=== PATIENT | male | born 1995 | race Caucasian/White ===

== ENCOUNTER 2018-02-05 20:55 | Emergency (ER) | payer SELFPAY ==
[~2018-02-05] VITALS: Ht 180.3 cm; Wt 86.2 kg
[~2018-02-05 20:55] MED LIST: ALBU8.5H2 IH; BPR75T PO; BUPR300T; CLIN300C11 PO; HYDR1TAB PO; LIDO15SO2 MM; METO-354 PO; NAPR-915 PO; NYQUIL; OMEP20CA12 PO; ONDA4TAB8 PO; POLY17PO23 GT; POLY17PO6 PO; RISP2TAB18; RISPERDOL
[2018-02-05] MEDS ORDERED: ONDANSETRON 4 MG (ZOFRAN) ORAL DISSOLVE TAB PO ONE (21:15)
--- NOTE | 2018-02-05 21:21 | ED GI ---
General Chief Complaint: Cough/Cold/Flu Symptoms Stated Complaint: VOMITING,SOB Source of Information: Patient Exam Limitations: No Limitations History of Present Illness Date Seen by Provider: Feb 05, 2018 Time Seen by Provider: 21:10 Initial Comments The patient presents to the ER by private conveyance with a chief complaint that for now 24 hours she has had nausea vomiting and some soft stools. He has had cough and cold-like symptoms for the past several days as well as several members of his family over the past couple weeks to have had colds without diarrhea or vomiting. He also has some tooth pain that is unrelated to his current symptoms. He has no other significant medical history no asthma and smokes cigarettes. He denies any abdominal surgeries or abdominal pain. He has been using Motrin for his dental pain as well as TheraFlu which gave him a little relief last night but not for very long. Allergies and Home Medications Allergies Coded Allergies: Penicillins (Unverified Allergy, Mild, 02/25/09) Home Medications Clindamycin HCl 300 Mg Capsule, 300 MG PO QID Prescribed by: ROBERT SANCHEZ on 08/28/172228 Lidocaine HCl 15 Ml Solution, 1-2 ML MM Q 1-2 HOURS Prescribed by: ROBERT SANCHEZ on 08/28/172228 Naproxen 500 Mg Tablet, 500 MG PO BID Prescribed by: ROBERT SANCHEZ on 08/28/172228 Patient Home Medication List Home Medication List Reviewed: Yes Review of Systems Constitutional: No chills, No diaphoresis, No fever, No malaise, No weakness EENTM: No Blurred Vision, No Double Vision Respiratory: Cough; Denies Shortness of Air, Denies Wheezing Cardiovascular: Denies Chest Pain, Denies Palpitations, Denies Syncope Gastrointestinal: Denies Constipated; Diarrhea, Nausea, Poor Fluid Intake, Vomiting Genitourinary: Denies Burning, Denies Discharge Musculoskeletal: No back pain, No joint pain Skin: No pruritus, No rash Psychiatric/Neurological: Denies Headache, Denies Numbness, Denies Paresthesia Past Ljxsyew-Pmlaja-Dhlrxb Hx Patient Social History Recreational Drug Use: No Smoking Status: Current Everyday Smoker Type Used: Cigarettes 2nd Hand Smoke Exposure: Yes Recent Hopitalizations: No Immunizations Up To Date Tetanus Booster (TDap): Unknown PED Vaccines UTD: Yes Date of Influenza Vaccine: Aug 12, 2012 Seasonal Allergies Seasonal Allergies: No Past Medical History Surgeries: Yes (BMT'S) Ear Surgery Respiratory: Yes Asthma Currently Using CPAP: No Currently Using BIPAP: No Cardiac: No Neurological: No Reproductive Disorders: No Sexually Transmitted Disease: No HIV/AIDS: No Gastrointestinal: Yes Chronic Constipation Musculoskeletal: No Endocrine: No HEENT: Yes (CHRONIC DENTAL ISSUES--"METH MOUTH" ) Cancer: No Psychosocial: Yes (DRUG AND ALCOHOL ABUSE) Anxiety, Bipolar, Depression Integumentary: No Blood Disorders: No Adverse Reaction/Blood Tranf: No Family Medical History No Pertinent Family Hx Physical Exam Vital Signs Capillary Refill : General Appearance: WD/WN, no apparent distress HEENT: PERRL/EOMI, normal ENT inspection, TMs normal, pharynx normal Neck: non-tender, full range of motion, supple, normal inspection Respiratory: chest non-tender, lungs clear, normal breath sounds, no respiratory distress, no accessory muscle use Cardiovascular: normal peripheral pulses, regular rate, rhythm, no edema Peripheral Pulses: 2+ Radial Pulses (R), 2+ Radial Pulses (L) Gastrointestinal: normal bowel sounds, non tender, soft, no organomegaly Extremities: no pedal edema, no calf tenderness, normal capillary refill Neurologic/Psychiatric: alert, normal mood/affect, oriented x 3 Skin: normal color, warm/dry Progress/Results/Core Measures My Orders Orders - MARIANNE CARDONA Ondansetron Oral Dissolve Tab (Zofran (02/05/18 21:15) Progress Note : Time: 21:19 Progress Note Patient has a viral upper respiratory tract infection with gastroenteritis symptoms. No acute abdomen. No septic vital signs. We have discussed further workup versus just treating his symptoms and giving this some time as it's only been going on for less than 24 hours now. He is not dehydrated. We'll give him some Zofran and marriage counselor him how to use Imodium. We'll give him something for his cough outpatient. Departure Impression Primary Impression: Upper respiratory infection Qualified Codes: J06.9 - Acute upper respiratory infection, unspecified Additional Impression: Gastroenteritis and colitis, viral Disposition: 01 HOME, SELF-CARE Condition: Improved Departure-Patient Inst. Decision time for Depature: 21:21 Referrals: NO,LOCAL PHYSICIAN (PCP/Family) Primary Care Physician Patient Instructions: Viral Gastroenteritis, Adult (DC) Add. Discharge Instructions: Every 6 hours if you're having nausea or vomiting you can take one tablet of Zofran and place under tongue and allowed to dissolve. After 48 hours if you're still having diarrhea that is copious and watery you can take 2 tablets of the Imodium and then every 4 hours after that if he still have diarrhea take another tablet. If you begin to have significant pain, fever or other worrisome symptoms you should follow up either with the primary care doctor or return to the ER. Typically these symptoms will last 3-5 days. For your upper respiratory viral syndrome you can use humidifiers, vapor rubs such as Vicks or Mentholatum, knud-jub-cgrsjly cough medicines. Drink lots of fluids especially things like sports drinks such as Powerade or Gatorade. All discharge instructions reviewed with patient and/or family. Voiced understanding. Scripts Benzonatate (Tessalon Perle) 100 Mg Capsule 100 MG PO Q6H PRN for COUGH, #30 CAP 0 Refills Prov: MARIANNE CARDONA 02/05/18 Ondansetron (Zofran Odt) 4 Mg Tab.rapdis 4 MG SL Q4H PRN for NAUSEA/VOMITING-1ST LINE, #10 TAB 0 Refills Prov: MARIANNE CARDONA 02/05/18 MARIANNE CARDONA Feb 05, 2018 21:21
[2018-02-05] MEDS ORDERED: ONDA4TAB8 SL (21:23)
[2018-02-05] MEDS ORDERED: BENZ-13 PO (21:23)
[2018-02-05] MEDS ORDERED: RX-ONDANSETRON 4 MG ODT (ZOFRAN) PPK #4 PO STA (21:24)
[2018-02-05 21:27] VITALS: BP 133/90
--- OUTSIDE RECORDS SUMMARY | 2018-02-06 10:37 | XMS REPORT ---
Author Author [facility] Address [address] [place] [address] Care Team Providers Care Doormaker Name Role Phone [facility] Unavailable PROBLEMS Type Condition ICD9-CM Code WLR82-GY Code Onset Dates Condition Status SNOMED Code Problem Bee sting allergy Z91.038 Active 822693261 Problem Contact with or exposure to venereal diseases V01.6 Active 545415749 Problem Screening examination for venereal disease V74.5 Active [id number] ALLERGIES Substance Reaction Event Type Date Status Penicillin V Potassium anaphylaxis Drug Allergy February, Active Bees anaphylaxis Non Drug Allergy February, Active SOCIAL HISTORY Never Assessed PLAN OF CARE Activity Details Follow Up Wednesday Reason: VITAL SIGNS Height 70.5 in 2017-03-19 Weight 173.6 lbs 2017-03-19 Temperature 96.7 degrees Fahrenheit 2017-03-19 Heart Rate 80 bpm 2017-03-19 Respiratory Rate 18 2017-03-19 BMI 24.55 kg/m2 2017-03-19 Blood pressure systolic 118 mmHg 2017-03-19 Blood pressure diastolic 60 mmHg 2017-03-19 MEDICATIONS Medication Instructions Dosage Frequency Start Date End Date Duration Status Depakote 500 MG Orally 2 times a day 500mg in am 1000mg at hs 12h Active Zofran 4 MG Orally every 4 hours as needed 1 tablet Active EpiPen 0.3 MG/0.3ML (1:1000) Intramuscular PRN as directed Aug, 2 doses Active Wellbutrin SR 150 MG Orally Once a day 2 tabs 24h Active Sertraline HCl 100 MG Orally Once a day 1 tab q am, 1 tab q noon 24h Active RESULTS No Results PROCEDURES Procedure Date Ordered Result Body Site ROCEPHIN 1 GM (IM) March 19, 2017 THER/PROPH/DIAG INJ, SC/IM March 19, 2017 IMMUNIZATIONS Vaccine Route Administration Date Status ROCEPHIN 1 GM (IM) IM Intramuscular March 19, 2017 Administered MEDICAL (GENERAL) HISTORY Type Description Date Medical History asthma Medical History attention deficit hyperactivity disorder Medical History bipolar disorder Surgical History myringotomy with T-tubes 1998 Hospitalization History anaphylactic reaction to penicillin 2007 Hospitalization History kidney infection 2006
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
--- OUTSIDE RECORDS SUMMARY | 2018-02-06 10:37 | XMS REPORT ---
Author Author KRYSTLE JIN Organization [employer] Address Unknown Phone Unavailable Care Team Providers Care System Manager Name Role Phone KRYSTLE JIN CP Unavailable Allergies, Adverse Reactions, Alerts Substance Reaction Event Type Penicillin V Potassium anaphylaxis Drug Allergy Bees anaphylaxis Non Drug Allergy Problems Problem Type Condition Code Onset Dates Condition Status Problem Screening examination for venereal disease V74.5 Active Problem Contact with or exposure to venereal diseases V01.6 Active Problem Bee sting allergy Z91.038 Active Assessment Bee sting allergy Z91.038 Active Assessment Right upper quadrant abdominal pain R10.11 Active Assessment Constipation, unspecified constipation type K59.00 Active Medications Medication Code System Code Instructions Start Date End Date Status Dosage EpiPen NDC 0 0.3 MG/0.3ML (1:1000) Intramuscular PRN Sep 03, 2015 as directed MiraLax [facility] [address]-99 17 gm/dose Orally 2 times a day 17 grams mixed in 8 oz of water or juice Zantac 150 Maximum Strength [facility] [address]-34 150 MG Orally Twice a day 1 tablet Medrol (Zac) [facility] [address]-24 4 MG Orally not defined Omeprazole [facility] [address]-30 20 MG Orally Once a day 2 capsules Zofran [facility] [address]-45 4 MG Orally every 4 hours as needed 1 tablet Procedures Procedure Coding System Code Date Office Visit, Est Pt., Level 3 CPT-4 55315 Sep 03, 2015 IMMUNOASSAY,INFECTIOUS AGENT CPT-4 88154 Sep 03, 2015 Vital Signs Date/Time: Sep 03, 2015 Temperature 98.0 F BMIPercentile 80.86 % Weight 184.2 lbs Height 70.5 in BMI 26.05 Index Blood Pressure Diastolic 52 mmHg Blood Pressure Systolic 118 mmHg Cardiac Monitoring Heart Rate 80 bpm Wt Percentile 84.21 % Ht Percentile 62.59 % Results Name Result Date Reference Range Unit Abnormality Flag H PYLORI (IN HOUSE) Summary Purpose [employer] Submission
--- OUTSIDE RECORDS SUMMARY | 2018-02-06 10:37 | XMS REPORT ---
Author Author KAREN BINGHAM Organization [facility] Address [address] [place] [address] Care Team Providers Care Relief Captain Name Role Phone KAREN BINGHAM Unavailable PROBLEMS Type Condition ICD9-CM Code LZE20-GJ Code Onset Dates Condition Status SNOMED Code Problem Bee sting allergy Z91.038 Active 374471777 Problem Contact with or exposure to venereal diseases V01.6 Active 976793147 Problem Screening examination for venereal disease V74.5 Active [id number] ALLERGIES Substance Reaction Event Type Date Status Penicillin V Potassium anaphylaxis Drug Allergy February, Active Bees anaphylaxis Non Drug Allergy February, Active SOCIAL HISTORY Never Assessed PLAN OF CARE Activity Details Follow Up Wednesday Reason:toe wound VITAL SIGNS Height 70.5 in 2017-03-23 Weight 180.6 lbs 2017-03-23 Temperature 97.0 degrees Fahrenheit 2017-03-23 Heart Rate 68 bpm 2017-03-23 Respiratory Rate 18 2017-03-23 BMI 25.54 kg/m2 2017-03-23 Blood pressure systolic 120 mmHg 2017-03-23 Blood pressure diastolic 64 mmHg 2017-03-23 MEDICATIONS Medication Instructions Dosage Frequency Start Date End Date Duration Status Zofran 4 MG Orally every 4 hours as needed 1 tablet Active EpiPen 0.3 MG/0.3ML (1:1000) Intramuscular PRN as directed Aug, 2 doses Active Wellbutrin SR 150 MG Orally Once a day 2 tabs 24h Active Sertraline HCl 100 MG Orally Once a day 1 tab q am, 1 tab q noon 24h Active Sulfamethoxazole-Trimethoprim 800-160 MG Orally Twice a day 1 tablet 12h February, Mar, 07 days Active Depakote 500 MG Orally 2 times a day 500mg in am 1000mg at hs 12h Active RESULTS No Results PROCEDURES Procedure Date Ordered Result Body Site ROCEPHIN 1 GM (IM) March 23, 2017 THER/PROPH/DIAG INJ, SC/IM March 23, 2017 IMMUNIZATIONS Vaccine Route Administration Date Status ROCEPHIN 1 GM (IM) IM Intramuscular March 23, 2017 Administered MEDICAL (GENERAL) HISTORY Type Description Date Medical History asthma Medical History attention deficit hyperactivity disorder Medical History bipolar disorder Surgical History myringotomy with T-tubes 1997 Hospitalization History anaphylactic reaction to penicillin 2007 Hospitalization History kidney infection 2006
== END 2018-02-05 21:27 | disposition home or self-care (01) ==
LOC: EDUNIT# 20:55 → ER 20:56
DX: J06.9 Acute upper respiratory infection, unspecified (principal); A08.4 Viral intestinal infection, unspecified; F41.9 Anxiety disorder, unspecified; F31.9 Bipolar disorder, unspecified; K59.09 Other constipation; J45.909 Unspecified asthma, uncomplicated; F17.210 Nicotine dependence, cigarettes, uncomplicated; Z88.0 Allergy status to penicillin
CPT/HCPCS: 99283

== ENCOUNTER 2018-02-07 11:19 | Emergency (ER) | payer SELFPAY ==
[~2018-02-07] VITALS: Ht 180.3 cm; Wt 86.2 kg
[~2018-02-07 11:19] MED LIST changes: +BENZ-13 PO; +ONDA4TAB8 SL
--- OUTSIDE RECORDS SUMMARY | 2018-02-07 11:25 | XMS REPORT | Continuity of Care Document ---
Author Author [facility] Address Unknown Phone Unavailable Allergies Active Description Code Type Severity Reaction Onset Reported/Identified Relationship to Patient Clinical Status Yes Penicillins [id number] Drug Allergy Mild N/A 02/25/2009 Yes Penicillins [...] Procedures Code Description [place] [address] GC/CHLAM URINE (STATE) 01/11/2015 Results There is no data. Encounters ACCT No. Visit Date/Time Discharge Status Pt. Type Provider Facility Loc./Unit Complaint [id number] 01/11/2015 13:13:00 01/11/2015 23:59:59 [place] [id number] 09/09/2017 17:00:00 09/09/2017 23:59:59 [facility] [id number] 08/28/2017 21:49:00 08/28/2017 22:36:00 DIS Emergency ROBERT SANCHEZ DO [facility] ER TOOTH PAIN [id number] 09/02/2015 20:44:00 09/02/2015 22:37:00 DIS Emergency ABDIRIZAK BALLESTEROS APRN [facility] ER R ARM NUMBNESS,DIZZINESS [id number] 03/11/2013 23:59:00 03/12/2013 04:03:00 DIS Emergency RENETTA GOODWIN MD [facility] ER VOMITING [id number] 08/26/2012 21:23:00 Document Registration [id number] 08/21/2012 00:58:00 Document Registration
[2018-02-07] MEDS ORDERED: NS IV 1000 ML 1,000 ML IV ONE ×2 (11:39→12:45)
[2018-02-07] MEDS ORDERED: ONDANSETRON 4 MG/2 ML (SDV) Z0FRAN IVP ONE ×2 (11:45→12:45)
--- NOTE | 2018-02-07 11:51 | ED GI ---
General Chief Complaint: Abdominal/GI Problems Stated Complaint: VOMITING,LIGHT-HEADED Nursing Triage Note: pt presents to ed with vomiting/diahrrea, and cough. Pt was last seen in ED on 02/05/18 for vomiting and told he had viral gastroenteritis. Pt reports Zofran prescribed has not helped. Sepsis Screen: No Definite Risk Source of Information: Patient Exam Limitations: No Limitations History of Present Illness Date Seen by Provider: Feb 07, 2018 Time Seen by Provider: 11:51 Initial Comments 22 yo male patient presents to the ED with N/V/D, cough, congestion, rhinorrhea , and body aches. Patient states he had a fever of 100.0 degrees on Wednesday at home. patient was seen by Dr. aCrdona on Wednesday in the ED and given a Rx for cough syrup and Zofran. Patient initially reported to nursing staff taking his last zofran yesterday. Now denies picking up the zofran. States he only picked the cough medicine up. Timing/Duration: Constant, Other (onset of symptoms 02/04/18.) Severity/Quality: Aching Location: Other (subcostal pain that is worse with coughing and vomiting.) Radiation: No Radiation Activities at Onset: None Modifying Factors: Worsens With Coughing, Worsens With Vomiting Allergies and Home Medications Allergies Coded Allergies: Penicillins (Unverified Allergy, Mild, 02/25/09) Home Medications Benzonatate 100 Mg Capsule, 100 MG PO Q6H PRN for COUGH Prescribed by: MARIANNE CARDONA on 02/05/182122 Benzonatate 200 Mg Capsule, 200 MG PO Q8H PRN for COUGH Prescribed by: BRITTANY JOHNSON on 02/07/18 1312 Clindamycin HCl 300 Mg Capsule, 300 MG PO QID Prescribed by: ROBERT SANCHEZ on 08/28/172228 Lidocaine HCl 15 Ml Solution, 1-2 ML MM Q 1-2 HOURS Prescribed by: ROBERT SANCHEZ on 08/28/172228 Naproxen 500 Mg Tablet, 500 MG PO BID Prescribed by: ROBERT SANCHEZ on 08/28/172228 Ondansetron 4 Mg Tab.rapdis, 4 MG SL Q4H PRN for NAUSEA/VOMITING-1ST LINE Prescribed by: MARIANNE CARDONA on 02/05/182122 Ondansetron 8 Mg Tab.rapdis, 8 MG PO Q6H PRN for NAUSEA/VOMITING-1ST LINE Prescribed by: BRITTANY JOHNSON on 02/07/18 1311 Prednisone 20 Mg Tab, 40 MG PO DAILY Prescribed by: BRITTANY JOHNSON on 02/07/18 1311 Patient Home Medication List Home Medication List Reviewed: Yes Review of Systems Constitutional: see HPI, chills; No fever (fever Wednesday, none since then.); malaise EENTM: See HPI, Nose Congestion, Throat Pain, Other ((+) sneezing, rhinorrhea. Clear drainage.) Respiratory: See HPI, Cough; Denies Shortness of Air, Denies SOA With Exertion , Denies Wheezing; Other (Clear productive cough.) Cardiovascular: No Symptoms Reported Gastrointestinal: See HPI; Denies Abdomen Distended; Abdominal Pain; Denies Blood Streaked Stools, Denies Constipated; Diarrhea, Nausea, Poor Appetite, Poor Fluid Intake; Denies Rectal Bleeding; Vomiting Genitourinary: No Symptoms Reported Musculoskeletal: see HPI Skin: no symptoms reported Psychiatric/Neurological: No Symptoms Reported All Other Systems Reviewed Negative Unless Noted: Yes (Negative excepted noted.) Past Locoixn-Vdswbh-Ibeghl Hx Patient Social History Alcohol Use: Occasionally Uses Recreational Drug Use: Yes (marijuana- last smoked 02/05/18) Smoking Status: Current Everyday Smoker Type Used: Cigarettes 2nd Hand Smoke Exposure: Yes Recent Foreign Travel: No Contact w/Someone Who Travel: No Recent Infectious Disease Expo: No Recent Hopitalizations: No Physical Abuse: No Sexual Abuse: No Mistreated: No Fear: No Immunizations Up To Date Tetanus Booster (TDap): Unknown PED Vaccines UTD: Yes Date of Influenza Vaccine: Aug 12, 2012 Seasonal Allergies Seasonal Allergies: No Past Medical History Surgeries: Yes (BMT'S) Ear Surgery Respiratory: Yes Asthma Currently Using CPAP: No Currently Using BIPAP: No Cardiac: No Neurological: No Reproductive Disorders: No Sexually Transmitted Disease: No HIV/AIDS: No Genitourinary: No Gastrointestinal: Yes Chronic Constipation Musculoskeletal: No Endocrine: No HEENT: Yes (CHRONIC DENTAL ISSUES--"METH MOUTH" ) Cancer: No Psychosocial: Yes (DRUG AND ALCOHOL ABUSE) Anxiety, Bipolar, Depression Nursing Suicide Risk Score: 0 Integumentary: No Blood Disorders: No Adverse Reaction/Blood Tranf: No Family Medical History Reviewed Nursing Family Hx No Pertinent Family Hx Physical Exam Vital Signs Vital Signs - First Documented 02/07/18 11:33 Temp 97.6 Pulse 88 Resp 20 B/P (MAP) 137/70 (92) Pulse Ox 98 Capillary Refill : Less Than 3 Seconds General Appearance: WD/WN, no apparent distress HEENT: PERRL/EOMI, TMs normal, pharyngeal erythema, other ((+) rhinorrhea and nasal congestion.) Neck: non-tender, full range of motion, supple, normal inspection Respiratory: lungs clear, normal breath sounds, no respiratory distress, no accessory muscle use, other (coughing throughout the exam. generalized rib tenderness without swelling or deformity.) Cardiovascular: normal peripheral pulses, regular rate, rhythm, no edema, no murmur Gastrointestinal: normal bowel sounds, soft, no organomegaly; No distended, No guarding, No rebound; tenderness (mild subcostal tenderness.); No mass Extremities: no pedal edema, no calf tenderness, normal capillary refill Back: normal inspection, no CVA tenderness Neurologic/Psychiatric: alert, normal mood/affect, oriented x 3 Skin: normal color, warm/dry Progress/Results/Core Measures Lab Results Laboratory Tests Test 02/07/18 11:45 Range/Units White Blood Count 9.9 4.3-11.0 10^3/uL Red Blood Count 5.54 4.35-5.85 10^6/uL Hemoglobin 16.4 13.3-17.7 G/DL Hematocrit 44 40-54 % Mean Corpuscular Volume 80 80-99 FL Mean Corpuscular Hemoglobin 30 25-34 PG Mean Corpuscular Hemoglobin Concent 37 H 32-36 G/DL Red Cell Distribution Width 13.5 10.0-14.5 % Platelet Count 265 130-400 10^3/uL Mean Platelet Volume 10.4 7.4-10.4 FL Neutrophils (%) (Auto) 68 42-75 % Lymphocytes (%) (Auto) 23 12-44 % Monocytes (%) (Auto) 6 0-12 % Eosinophils (%) (Auto) 3 0-10 % Basophils (%) (Auto) 0 0-10 % Neutrophils # (Auto) 6.8 1.8-7.8 X 10^3 Lymphocytes # (Auto) 2.2 1.0-4.0 X 10^3 Monocytes # (Auto) 0.6 0.0-1.0 X 10^3 Eosinophils # (Auto) 0.3 0.0-0.3 10^3/uL Basophils # (Auto) 0.0 0.0-0.1 10^3/uL Urine Color YELLOW Urine Clarity CLEAR Urine pH 7 5-9 Urine Specific [place] 1.010 L 1.016-1.022 Urine Protein NEGATIVE NEGATIVE Urine Glucose (UA) NEGATIVE NEGATIVE Urine Ketones NEGATIVE NEGATIVE Urine Nitrite NEGATIVE NEGATIVE Urine Bilirubin NEGATIVE NEGATIVE Urine Urobilinogen NORMAL NORMAL MG/DL Urine Leukocyte Esterase NEGATIVE NEGATIVE Urine RBC (Auto) NEGATIVE NEGATIVE Urine RBC NONE /HPF Urine WBC NONE /HPF Urine Crystals NONE /LPF Urine Bacteria NEGATIVE /HPF Urine Casts NONE /LPF Urine Mucus NEGATIVE /LPF Urine Culture Indicated NO Sodium Level 140 135-145 MMOL/L Potassium Level 3.7 3.6-5.0 MMOL/L Chloride Level 109 H 98-107 MMOL/L Carbon Dioxide Level 23 21-32 MMOL/L Anion Gap 8 5-14 MMOL/L Blood Urea Nitrogen 8 7-18 MG/DL Creatinine 0.83 0.60-1.30 MG/DL Estimat Glomerular Filtration Rate > 60 BUN/Creatinine Ratio 10 Glucose Level 114 H 70-105 MG/DL Calcium Level 10.1 8.5-10.1 MG/DL Total Bilirubin 0.6 0.1-1.0 MG/DL Aspartate Amino Transf (AST/SGOT) 26 5-34 U/L Alanine Aminotransferase (ALT/SGPT) 27 0-55 U/L Alkaline Phosphatase 75 40-136 U/L Total Protein 7.7 6.4-8.2 GM/DL Albumin 4.5 3.2-4.5 GM/DL Lipase 22 8-78 U/L Urine Opiates Screen NEGATIVE NEGATIVE Urine Oxycodone Screen NEGATIVE NEGATIVE Urine Methadone Screen NEGATIVE NEGATIVE Urine Propoxyphene Screen NEGATIVE NEGATIVE Urine Barbiturates Screen NEGATIVE NEGATIVE Ur Tricyclic Antidepressants Screen NEGATIVE NEGATIVE Urine Phencyclidine Screen NEGATIVE NEGATIVE Urine Amphetamines Screen NEGATIVE NEGATIVE Urine Methamphetamines Screen NEGATIVE NEGATIVE Urine Benzodiazepines Screen NEGATIVE NEGATIVE Urine Cocaine Screen NEGATIVE NEGATIVE Urine Cannabinoids Screen POSITIVE H NEGATIVE My Orders Orders - BRITTANY JOHNSON Cbc With Automated Diff (02/07/18 11:39) Comprehensive Metabolic Panel (02/07/18 11:39) Drug Screen Stat (Urine) (02/07/18 11:39) Lipase (02/07/18 11:39) Ua Culture If Indicated (02/07/18 11:39) Saline Lock/Iv-Start (02/07/18 11:39) Ondansetron Injection (Zofran Injectio (02/07/18 11:45) Ns Iv 1000 Ml (Sodium Chloride 0.9%) (02/07/18 11:39) Ondansetron Injection (Zofran Injectio (02/07/18 12:45) Famotidine Injection (Pepcid Injection) (02/07/18 12:45) Ns Iv 1000 Ml (Sodium Chloride 0.9%) (02/07/18 12:45) Ketorolac Injection (Toradol Injection) (02/07/18 12:45) Benzonatate Capsule (Tessalon Perles) (02/07/18 12:45) Medications Given in ED Current Medications Medications Dose Ordered Sig/Sarah Route Start Time Stop Time Status Last Admin Dose Admin Benzonatate 200 mg ONCE ONCE PO 02/07/18 12:45 02/07/18 12:48 DC 02/07/18 13:03 200 MG Ondansetron HCl 4 mg ONCE ONCE IVP 02/07/18 11:45 02/07/18 11:46 DC 02/07/18 11:49 4 MG Ondansetron HCl 4 mg ONCE ONCE IVP 02/07/18 12:45 02/07/18 12:48 DC 02/07/18 13:03 4 MG Sodium Chloride 1,000 ml @ 0 mls/hr Q0M ONCE IV 02/07/18 11:39 02/07/18 11:42 DC 02/07/18 11:49 0 MLS/HR Sodium Chloride 1,000 ml @ 0 mls/hr Q0M ONCE IV 02/07/18 12:45 02/07/18 12:48 DC 02/07/18 13:04 0 MLS/HR Vital Signs/I&O 02/07/18 11:33 Temp 97.6 Pulse 88 Resp 20 B/P (MAP) 137/70 (92) Pulse Ox 98 Blood Pressure Mean: 92 Departure Communication (Admissions) Patient seen and evaluated. All laboratory findings discussed with the patient. Patient reports feeling much better with the zofran, toradol, tessalon perles, and 2 L NS. plan for dsch to home. Impression Primary Impression: Influenza-like illness Additional Impression: Nausea, vomiting, and diarrhea Disposition: HOME, SELF-CARE Condition: Improved Departure-Patient Inst. Decision time for Depature: 13:06 Referrals: NO,LOCAL PHYSICIAN (PCP/Family) Primary Care Physician Patient Instructions: Flu, Adult (DC), [id number], Marijuana Use and Addiction (DC) Add. Discharge Instructions: All discharge instructions reviewed with patient and/or family. Voiced understanding. Medications as instructed. Pepcid over the counter for nausea and vomiting. You may use over the counter tums, rolaids, etc... for symptoms if needed. Tylenol Extra Strength [id number] as directed for pain or fever. Ibuprofen 800 mg by mouth every 8 hours as needed for pain or fever. Do NOT use marijuana as this can cause and exacerbate nausea, vomiting, abdominal pain, and diarrhea. Push fluids. Clear liquid diet until symptoms improve, then increase diet slowly to a low-fat, bland diet. Over the counter afrin nasal spray, saline nasal spray, decongestants, and antihistamines as instructed for symptoms. Follow-up with your family practitioner for recheck if no improvement in symptoms. Return to the emergency department for worsened symptoms or any other concerns. Scripts Benzonatate (Benzonatate) 200 Mg Capsule 200 MG PO Q8H PRN for COUGH, #30 CAP 0 Refills Prov: BRITTANY JOHNSON 02/07/18 Prednisone (Prednisone) 20 Mg Tab 40 MG PO DAILY, #10 TAB 0 Refills Prov: BRITTANY JOHNSON 02/07/18 Ondansetron (Ondansetron Odt) 8 Mg Tab.rapdis 8 MG PO Q6H PRN for NAUSEA/VOMITING-1ST LINE, #10 TAB 0 Refills Prov: BRITTANY JOHNSON 02/07/18 Work/School Note: Local Medical Staff Listing, Work Release Form Date Seen in the Emergency Department: Feb 07, 2018 Return to Work: Feb 08, 2018 Restrictions: No Restrictions BRITTANY JOHNSON Feb 07, 2018 11:51
[2018-02-07 12:03] LABS: BASOPHILS % (AUTO) 0 % (0-10); EOSINOPHILS # (AUTO) 0.3 10^3/uL (0.0-0.3); EOSINOPHILS % (AUTO) 3 % (0-10); HEMATOCRIT 44 % (40-54); HEMOGLOBIN 16.4 G/DL (13.3-17.7); LYMPHOCYTES # (AUTO) 2.2 X 10^3 (1.0-4.0); LYMPHOCYTES % (AUTO) 23 % (12-44); MEAN CORPUSCULAR HEMOGLOBIN 30 PG (25-34); MEAN CORPUSCULAR HGB CONC 37 G/DL (32-36); MEAN CORPUSCULAR VOLUME 80 FL (80-99); MEAN PLATELET VOLUME 10.4 FL (7.4-10.4); MONOCYTES # (AUTO) 0.6 X 10^3 (0.0-1.0); MONOCYTES % (AUTO) 6 % (0-12); NEUTROPHILS # (AUTO) 6.8 X 10^3 (1.8-7.8); NEUTROPHILS % (AUTO) 68 % (42-75); PLATELET COUNT 265 10^3/uL (130-400); RED BLOOD COUNT 5.54 10^6/uL (4.35-5.85); RED CELL DISTRIBUTION WIDTH 13.5 % (10.0-14.5); WHITE BLOOD COUNT 9.9 10^3/uL (4.3-11.0)
[2018-02-07 12:04] LABS: BILIRUBIN,URINE NEGATIVE (NEGATIVE); CLARITY,URINE CLEAR; COLOR,URINE YELLOW; GLUCOSE, URINE (UA) NEGATIVE (NEGATIVE); KETONES,URINE NEGATIVE (NEGATIVE); LEUKOCYTE ESTERASE ,URINE NEGATIVE (NEGATIVE); NITRITE,URINE NEGATIVE (NEGATIVE); PH,URINE 7 (5-9); PROTEIN,URINE NEGATIVE (NEGATIVE); UROBILINOGEN,URINE NORMAL (NORMAL)
[2018-02-07 12:13] LABS: BACTERIA,URINE NEGATIVE /HPF
[2018-02-07 12:20] LABS: ALANINE AMINOTRANSFERASE 27 U/L (0-55); ALBUMIN 4.5 GM/DL (3.2-4.5); ALKALINE PHOSPHATASE 75 U/L (40-136); BILIRUBIN,TOTAL 0.6 MG/DL (0.1-1.0); BUN/CREATININE RATIO 10; CALCIUM 10.1 MG/DL (8.5-10.1); CARBON DIOXIDE 23 MMOL/L (21-32); CHLORIDE 109 MMOL/L (98-107); CREATININE SERUM 0.83 MG/DL (0.60-1.30); GFR ESTIMATED > 60; GLUCOSE 114 MG/DL (70-105); LIPASE 22 U/L (8-78); POTASSIUM 3.7 MMOL/L (3.6-5.0); SODIUM 140 MMOL/L (135-145); TOTAL PROTEIN 7.7 GM/DL (6.4-8.2)
[2018-02-07 12:23] LABS: AMPHETAMINE SCREEN, URINE NEGATIVE (NEGATIVE); BARBITURATE SCREEN URINE NEGATIVE (NEGATIVE); BENZODIAZEPINES SCREEN URINE NEGATIVE (NEGATIVE); CANNABINOID SCREEN, URINE POSITIVE (NEGATIVE); COCAINE SCREEN URINE NEGATIVE (NEGATIVE); METHADONE STAT NEGATIVE (NEGATIVE); METHAMPHETAMINE SCREEN URINE S NEGATIVE (NEGATIVE); OPIATE SCREEN URINE NEGATIVE (NEGATIVE); OXYCODONE STAT NEGATIVE (NEGATIVE); PROPOXYPHENE STAT NEGATIVE (NEGATIVE); TRICYCLIC ANTIDEPRESSANTS SCRE NEGATIVE (NEGATIVE)
[2018-02-07] MEDS ORDERED: FAMOTIDINE 20MG/2ML IV (PEPCID) IV STA (12:45)
[2018-02-07] MEDS ORDERED: BENZONATATE 100 MG (TESSALON) CAPSULE PO ONE (12:45)
[2018-02-07] MEDS ORDERED: KETOROLAC 30 MG/ML VIAL IVP STA (12:45)
[2018-02-07] MEDS ORDERED: ONDA8TAB13 PO (13:11)
[2018-02-07] MEDS ORDERED: PRD20T PO (13:11)
[2018-02-07] MEDS ORDERED: BENZ200C51 PO (13:12)
[2018-02-07 14:08] VITALS: BP 135/84
== END 2018-02-07 14:08 | disposition home or self-care (01) ==
LOC: EDUNIT# 11:19 → ER 11:21
DX: J11.1 Influenza due to unidentified influenza virus with other respiratory manifestations (principal); R11.2 Nausea with vomiting, unspecified; R19.7 Diarrhea, unspecified; F41.9 Anxiety disorder, unspecified; F31.9 Bipolar disorder, unspecified; K59.09 Other constipation; J45.909 Unspecified asthma, uncomplicated; F12.90 Cannabis use, unspecified, uncomplicated; F17.210 Nicotine dependence, cigarettes, uncomplicated; Z98.890 Other specified postprocedural states; Z88.0 Allergy status to penicillin
CPT/HCPCS: 36415; 80053; 80306; 81000; 83690; 85025; 96361; 96374; 96375; 96376

== ENCOUNTER 2018-07-09 12:05 | Emergency (ER) | payer SELFPAY ==
[~2018-07-09] VITALS: Ht 180.3 cm; Wt 80.7 kg
[~2018-07-09 12:05] MED LIST changes: -BENZ-13 PO; +BENZ100C18 PO; +BENZ200C51 PO; +ONDA8TAB13 PO; +PRD20T PO
--- OUTSIDE RECORDS SUMMARY | 2018-07-09 12:10 | XMS REPORT ---
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 Active 868074730 Problem Contact with or exposure to venereal diseases V01.6 Active 036436301 Problem Screening examination for venereal disease V74.5 Active [id number] ALLERGIES Substance Reaction Event Type Date Status Penicillin V Potassium anaphylaxis Drug Allergy Aug, Active Bees anaphylaxis Non Drug Allergy Aug, Active ENCOUNTERS Encounter Location Date Diagnosis [facility] [id number] [place] [id number] Aug, Dental examination Z01.20 and Dental caries K02.9 [facility] [id number] [place] [phone] May, Fertility testing Z31.41 [facility] [id number] [place] [phone] May, Dental examination Z01.20 and Dental caries K02.9 [facility] [id number] [place] [phone] February, Laceration of lesser toe without foreign body present or damage to nail, unspecified laterality, subsequent encounter S91.116D [facility] [id number] [place] [phone] February, Laceration of lesser toe without foreign body present or damage to nail, unspecified laterality, subsequent encounter S91.116D [facility] [id number] [place] [id number] Aug, Right upper quadrant abdominal pain R10.11 ; Constipation, unspecified constipation type K59.00 and Bee sting allergy Z91.038 [facility] [address] [id number] [place] [address] Jan, [facility] [address] [id number] [place] [address] Dec, [facility] [id number] [place] [id number] Dec, [facility] [address] [id number] [place] [address] Dec, IMMUNIZATIONS No Known Immunizations SOCIAL HISTORY Never Assessed REASON FOR VISIT case PLAN OF CARE Activity Details Follow Up prn Reason:SONU with HYG VITAL SIGNS Blood pressure systolic 115 mmHg 2017-09-09 Blood pressure diastolic 68 mmHg 2017-09-09 MEDICATIONS Medication Instructions Dosage Frequency Start Date End Date Duration Status Wellbutrin SR 150 MG Orally Once a day 2 tabs 24h Active Zofran 4 MG Orally every 4 hours as needed 1 tablet Not-Taking EpiPen 0.3 MG/0.3ML (1:1000) Intramuscular PRN as directed Aug, 2 doses Not-Taking Depakote 500 MG Orally 2 times a day 500mg in am 1000mg at hs 12h Active Sertraline HCl 100 MG Orally Once a day 1 tab q am, 1 tab q noon 24h Active RESULTS No Results PROCEDURES Procedure Date Ordered Result Body Site LTD ORAL EVALUATION - PROBLEM FOCUS Sep 09, 2017 INTRAORL-PERIAPICAL 1 FILM [id number] Sep 09, 2017 EXTRAC ERUPTED TOOTH/EXPOSED ROOT Sep 09, 2017 INSTRUCTIONS MEDICATIONS ADMINISTERED No Known Medications MEDICAL (GENERAL) HISTORY Type Description Date Medical History asthma Medical History attention deficit hyperactivity disorder Medical History bipolar disorder Surgical History myringotomy with T-tubes 1997 Hospitalization History anaphylactic reaction to penicillin 2006 Hospitalization History kidney infection 2005
--- OUTSIDE RECORDS SUMMARY | 2018-07-09 12:11 | XMS REPORT | Continuity of Care Document ---
Author Author [facility] Organization [facility] Address Unknown Phone Unavailable Care Team Providers Care Rescue Boat Operator Name Role Phone NO, LOCAL PHYSICIAN PP Unavailable Insurance Providers Payer Name Policy Number Subscriber Name Relationship Medicaid [place] [id number] Elijah Ibrahim 01 Self / Same As Patient Advance Directives Directive Response Recorded Date Advance Directives N 03/12/13 12:04am Health Care Power of Fringe Knotter N 08/21/12 1:03am Organ Donor N 08/21/12 1:03am Problems No Known Problems or Medical conditions. Social History History Response Recorded Date/Time Alcohol Use Denies Use 03/12/13 12:04am Recreational Drug Use N 03/12/13 12:04am Allergies, Adverse Reactions, Alerts Allergen Type Severity Reaction Last Updated Penicillins Allergy Mild 02/25/09 Medications Medication Dose Units Route Sig Qty Days Albuterol (Proair Hfa) 8.5 Gm IH Q4H Bupropion HCl (Wellbutrin Xl) Risperidone (Risperdal) Bupropion HCl (Wellbutrin) 1 Tab PO BID 60 [Risperdol] Polyethylene Glycol (Miralax 17 Gm Packet) 17 Gm GT DAILY 30 Metoclopramide HCl (Reglan 10 Mg Tab) 1 Each PO QID PRN 20 Immunizations Name Given Type Date of Influenza Vaccine 08/12/12 H Response Recorded Date/Time Status not known Unknown Results Test Date Result Interp. Ref. Range Alanine Aminotransferase (ALT/SGPT) March 12, 2013 2:21am 50 U/L N 30-65 Albumin March 12, 2013 2:21am 3.9 G/DL N 3.4-5.0 Alkaline Phosphatase March 12, 2013 2:21am 112 U/L N 60-350 Amylase Level March 12, 2013 2:21am 53 U/ L N 25-115 Aspartate Amino Transf (AST/SGOT) March 12, 2013 2:21am 27 U/L N 15-37 BUN/Creatinine Ratio March 12, 2013 2:21am 15 - Basophils # (Auto) March 12, 2013 2:21am 0.0 10^3/uL N 0.0-0.1 Basophils (%) (Auto) March 12, 2013 2:21am 0 % N 0-10 Blood Urea Nitrogen March 12, 2013 2:21am 15 MG/DL N 7-18 C-Reactive Protein August 21, 2012 2:24am < 0.2 MG/DL L 0.2-0.9 Calcium Level March 12, 2013 2:21am 8.5 MG /DL N 8.5-10.1 Carbon Dioxide Level March 12, 2013 2:21am 24 MMOL/L N 21-32 Chloride Level March 12, 2013 2:21am 106 MMOL/L N 101-110 Creatinine March 12, 2013 2:21am 1.0 MG/ DL N 0.6-1.3 Eosinophils # (Auto) March 12, 2013 2:21am 0.2 10^3/uL N 0.0-0.3 Eosinophils (%) (Auto) March 12, 2013 2:21am 4 % N 0-10 Erythrocyte Sedimentation Rate March 12, 2013 2:21am 4 MM/HR N 0-15 Glucose Level March 12, 2013 2:21am 86 MG/ DL N 74-106 Hematocrit March 12, 2013 2:21am 43 % N 40-54 Hemoglobin March 12, 2013 2:21am 15.8 G/ DL N 13.3-17.7 Lipase March 12, 2013 2:21am 188 U/L N 73-393 Lymphocytes # (Auto) March 12, 2013 2:21am 2.6 X 10^3 N 1.0-4.0 Lymphocytes (%) (Auto) March 12, 2013 2:21am 44 % N 12-44 Mean Corpuscular Hemoglobin March 12, 2013 2:21am 29 PG N 25-34 Mean Corpuscular Hemoglobin Concent March 12, 2013 2:21am 37 G/DL H 32-36 Mean Corpuscular Volume March 12, 2013 2:21am 80 FL N 80-99 Mean Platelet Volume March 12, 2013 2:21am 11.2 FL H 7.4-10.4 Monocytes # (Auto) March 12, 2013 2:21am 0.6 X 10^3 N 0.0-1.0 Monocytes (%) (Auto) March 12, 2013 2:21am 10 % N 0-12 Neutrophils # (Auto) March 12, 2013 2:21am 2.5 X 10^3 N 1.8-7.8 Neutrophils (%) (Auto) March 12, 2013 2:21am 42 % N 42-75 Platelet Count March 12, 2013 2:21am 216 10^3/uL N 130-400 Potassium Level March 12, 2013 2:21am 3.8 MMOL/L N 3.6-5.0 Red Blood Count March 12, 2013 2:21am 5.37 10^6/uL N 4.35-5.85 Red Cell Distribution Width March 12, 2013 2:21am 13.2 % N 10.0-14.5 Sodium Level March 12, 2013 2:21am 139 MMOL/L N 135-145 Total Bilirubin March 12, 2013 2:21am 0.9 MG/DL N 0.0-1.0 Total Protein March 12, 2013 2:21am 7.0 G/ DL N 6.4-8.2 Ur Tricyclic Antidepressants Screen March 12, 2013 12:11am NEGATIVE - Urine Amphetamines Screen March 12, 2013 12:11am NEGATIVE - Urine Bacteria March 12, 2013 12:11am NEGATIVE /HPF - Urine Barbiturates Screen March 12, 2013 12:11am NEGATIVE - Urine Benzodiazepines Screen March 12, 2013 12:11am NEGATIVE - Urine Bilirubin March 12, 2013 12:11am NEGATIVE - Urine Casts March 12, 2013 12:11am NONE / LPF - Urine Clarity March 12, 2013 12:11am CLEAR - Urine Cocaine Screen March 12, 2013 12:11am NEGATIVE - Urine Color March 12, 2013 12:11am YELLOW - Urine Crystals March 12, 2013 12:11am NONE /LPF - Urine Culture Indicated March 12, 2013 12:11am NO - Urine Glucose (UA) March 12, 2013 12:11am NEGATIVE - Urine Ketones March 12, 2013 12:11am NEGATIVE - Urine Leukocyte Esterase March 12, 2013 12:11am NEGATIVE - Urine Methamphetamines Screen March 12, 2013 12:11am NEGATIVE - Urine Mucus March 12, 2013 12:11am LARGE / LPF H - Urine Nitrite March 12, 2013 12:11am NEGATIVE - Urine Opiates Screen March 12, 2013 12:11am NEGATIVE - Urine Phencyclidine Screen March 12, 2013 12:11am NEGATIVE - Urine Propoxyphene Screen March 12, 2013 12:11am NEGATIVE - Urine Protein March 12, 2013 12:11am NEGATIVE - Urine RBC March 12, 2013 12:11am 5-10 / HPF H - Urine Specific [place] March 12, 2013 12:11am 1.025 H - Urine Squamous Epithelial Cells March 12, 2013 12:11am 2-5 /HPF - Urine Urobilinogen March 12, 2013 12:11am 1 MG/DL - Urine WBC March 12, 2013 12:11am RARE / HPF - Urine pH March 12, 2013 12:11am 6 - White Blood Count March 12, 2013 2:21am 5.9 10^3/uL N 4.3-11.0 Serum Alcohol March 12, 2013 2:21am < 5 MG /DL -5 Urine Oxycodone Screen March 12, 2013 12:11am NEGATIVE - Urine Methadone Screen March 12, 2013 12:11am NEGATIVE - Urine Cannabinoids Screen March 12, 2013 12:11am NEGATIVE - Urine Buprenorphine March 12, 2013 12:11am NEGATIVE - Urine RBC (Auto) March 12, 2013 12:11am NEGATIVE - Encounters Encounter Location Date/Time Departed Emergency Room [facility] 11:59pm
--- OUTSIDE RECORDS SUMMARY | 2018-07-09 12:12 | XMS REPORT | Continuity of Care Document ---
Author Author [facility] Ctr of [facility] Ctr of [facility] Address Unknown Phone Unavailable Allergies Active Description Code Type Severity Reaction Onset Reported/Identified Relationship to Patient Clinical Status Yes Penicillins [id number] Drug Allergy Mild N/A 02/25/2009 Yes Penicillins [...] DO Ot J45.909 UNSPECIFIED ASTHMA, UNCOMPLICATED 08/28/2017 SOLITARIO SANCHEZ DOA K Ot K02.9 DENTAL CARIES, UNSPECIFIED 08/28/2017 LAURA ROGERS, ROBERT K Ot K08.89 OTHER SPECIFIED DISORDERS OF TEETH AND S 02/05/2018 MARIANNE CARDONA MD J Ot A08.4 VIRAL INTESTINAL INFECTION, UNSPECIFIED 02/05/2018 MINDA CARDONA MDUS J Ot F17.210 NICOTINE DEPENDENCE, CIGARETTES, UNCOMPL 02/05/2018 MINDA CARDONA MDUS J Ot F31.9 BIPOLAR DISORDER, UNSPECIFIED 02/05/2018 MARIANNE CARDONA MD J Ot F41.9 ANXIETY DISORDER, UNSPECIFIED 02/05/2018 MINDA CARDONA MDUS J Ot J06.9 ACUTE UPPER RESPIRATORY INFECTION, UNSPE 02/05/2018 MINDA CARDONA MDUS J Ot J45.909 UNSPECIFIED ASTHMA, UNCOMPLICATED 02/05/2018 MINDA CARDONA MDUS J Ot K59.09 OTHER CONSTIPATION 02/05/2018 DULCE FRANCOIS MARIANNE J Ot R11.2 NAUSEA WITH VOMITING, UNSPECIFIED 02/05/2018 MINDA CARDONA MDUS J Ot Z88.0 ALLERGY STATUS TO PENICILLIN 02/07/2018 DULCE FRANCOIS MARIANNE J Ot A08.4 VIRAL INTESTINAL INFECTION, UNSPECIFIED 02/07/2018 MINDA CARDONA MDUS J Ot F17.210 NICOTINE DEPENDENCE, CIGARETTES, UNCOMPL 02/07/2018 MINDA CARDONA MDUS J Ot F31.9 BIPOLAR DISORDER, UNSPECIFIED 02/07/2018 MINDA CARDONA MDUS J Ot F41.9 ANXIETY DISORDER, UNSPECIFIED 02/07/2018 MINDA CARDONA MDUS J Ot J06.9 ACUTE UPPER RESPIRATORY INFECTION, UNSPE 02/07/2018 MINDA CARDONA MDUS J Ot J45.909 UNSPECIFIED ASTHMA, UNCOMPLICATED 02/07/2018 MINDA CARDONA MDUS J Ot K59.09 OTHER CONSTIPATION 02/07/2018 DULCE FRANCOIS MARIANNE J Ot R11.2 NAUSEA WITH VOMITING, UNSPECIFIED 02/07/2018 DULCE FRANCOIS MARIANNE J Ot Z88.0 ALLERGY STATUS TO PENICILLIN 02/07/2018 BRITTANY ROMERO Ot F12.90 CANNABIS USE, UNSPECIFIED, UNCOMPLICATED 02/07/2018 BRITTANY ROMERO Ot F17.210 NICOTINE DEPENDENCE, CIGARETTES, UNCOMPL 02/07/2018 BRITTANY ROMERO L Ot F31.9 BIPOLAR DISORDER, UNSPECIFIED 02/07/2018 BRITTANY ROMERO Ot F41.9 ANXIETY DISORDER, UNSPECIFIED 02/07/2018 BRITTANY ROMERO Ot J11.1 FLU DUE TO UNIDENTIFIED INFLUENZA VIRUS 02/07/2018 BRITTANY ROMERO L Ot J45.909 UNSPECIFIED ASTHMA, UNCOMPLICATED 02/07/2018 BRITTANY ROMERO Ot K59.09 OTHER CONSTIPATION 02/07/2018 BRITTANY ROMERO Ot R11.2 NAUSEA WITH VOMITING, UNSPECIFIED 02/07/2018 BRITTANY ROMERO Ot R19.7 DIARRHEA, UNSPECIFIED 02/07/2018 BRITTANY ROMERO Ot R50.9 FEVER, UNSPECIFIED 02/07/2018 BRITTANY ROMERO Ot Z88.0 ALLERGY STATUS TO PENICILLIN 02/07/2018 BRITTANY ROMERO Ot Z98.890 OTHER SPECIFIED POSTPROCEDURAL STATES 02/09/2018 BRITTANY ROMERO Ot F12.90 CANNABIS USE, UNSPECIFIED, UNCOMPLICATED 02/09/2018 BRITTANY ROMERO Ot F17.210 NICOTINE DEPENDENCE, CIGARETTES, UNCOMPL 02/09/2018 BRITTANY ROMERO Ot F31.9 BIPOLAR DISORDER, UNSPECIFIED 02/09/2018 BRITTANY ROMERO Ot F41.9 ANXIETY DISORDER, UNSPECIFIED 02/09/2018 BRITTANY ROMERO Ot J11.1 FLU DUE TO UNIDENTIFIED INFLUENZA VIRUS 02/09/2018 BRITTANY ROMERO Ot J45.909 UNSPECIFIED ASTHMA, UNCOMPLICATED 02/09/2018 BRITTANY ROMERO Ot K59.09 OTHER CONSTIPATION 02/09/2018 BRITTANY ROMERO Ot R11.2 NAUSEA WITH VOMITING, UNSPECIFIED 02/09/2018 BRITTANY ROMERO Ot R19.7 DIARRHEA, UNSPECIFIED 02/09/2018 BRITTANY ROMERO Ot R50.9 FEVER, UNSPECIFIED 02/09/2018 BRITTANY ROMERO Ot Z88.0 ALLERGY STATUS TO PENICILLIN 02/09/2018 BRITTANY ROMERO Ot Z98.890 OTHER SPECIFIED POSTPROCEDURAL STATES Procedures Code Description [place] [address] /[facility] URINE (STATE) 01/11/2015 Results Test Result Range Complete blood count (CBC) with automated white blood cell (WBC) differential - 02/07/18 11:45 Blood leukocytes automated count (number/volume) 9.9 10*3/uL 4.3-11.0 Blood erythrocytes automated count (number/volume) 5.54 10*6/uL 4.35-5.85 Venous blood hemoglobin measurement (mass/volume) 16.4 g/dL 13.3-17.7 Blood hematocrit (volume fraction) 44 % 40-54 Automated erythrocyte mean corpuscular volume 80 [foz_us] 80-99 Automated erythrocyte mean corpuscular hemoglobin (mass per erythrocyte) 30 pg 25-34 Automated erythrocyte mean corpuscular hemoglobin concentration measurement ( mass/volume) 37 g/dL 32-36 Automated erythrocyte distribution width ratio 13.5 % 10.0-14.5 Automated blood platelet count (count/volume) 265 10*3/uL 130-400 Automated blood platelet mean volume measurement 10.4 [foz_us] 7.4-10.4 Automated blood neutrophils/100 leukocytes 68 % 42-75 Automated blood lymphocytes/100 leukocytes 23 % 12-44 Blood monocytes/100 leukocytes 6 % 0-12 Automated blood eosinophils/100 leukocytes 3 % 0-10 Automated blood basophils/100 leukocytes 0 % 0-10 Blood neutrophils automated count (number/volume) 6.8 10*3 1.8-7.8 Blood lymphocytes automated count (number/volume) 2.2 10*3 1.0-4.0 Blood monocytes automated count (number/volume) 0.6 10*3 0.0-1.0 Automated eosinophil count 0.3 10*3/uL 0.0-0.3 Automated blood basophil count (count/volume) 0.0 10*3/uL 0.0-0.1 Complete urinalysis with reflex to culture - 02/07/18 11:45 Urine color determination YELLOW NRG Urine clarity determination CLEAR NRG Urine pH measurement by test strip 7 5-9 Specific gravity of urine by test strip 1.010 1.016- 1.022 Urine protein assay by test strip, semi-quantitative NEGATIVE NEGATIVE Urine glucose detection by automated test strip NEGATIVE NEGATIVE Erythrocytes detection in urine sediment by light microscopy NEGATIVE NEGATIVE Urine ketones detection by automated test strip NEGATIVE NEGATIVE Urine nitrite detection by test strip NEGATIVE NEGATIVE Urine total bilirubin detection by test strip NEGATIVE NEGATIVE Urine urobilinogen measurement by automated test strip (mass/volume) NORMAL NORMAL Urine leukocyte esterase detection by dipstick NEGATIVE NEGATIVE Automated urine sediment erythrocyte count by microscopy (number/high power field) NONE NRG Automated urine sediment leukocyte count by microscopy (number/high power field ) NONE NRG Bacteria detection in urine sediment by light microscopy NEGATIVE NRG Crystals detection in urine sediment by light microscopy NONE NRG Casts detection in urine sediment by light microscopy NONE NRG Mucus detection in urine sediment by light microscopy NEGATIVE NRG Complete urinalysis with reflex to culture NO NRG Comprehensive metabolic panel - 02/07/18 11:45 Serum or plasma sodium measurement (moles/volume) 140 mmol/L 135-145 Serum or plasma potassium measurement (moles/volume) 3.7 mmol/L 3.6-5.0 Serum or plasma chloride measurement (moles/volume) 109 mmol/L 98-107 Carbon dioxide 23 mmol/L 21-32 Serum or plasma anion gap determination (moles/volume) 8 mmol/L 5-14 Serum or plasma urea nitrogen measurement (mass/volume) 8 mg/dL 7-18 Serum or plasma creatinine measurement (mass/volume) 0.83 mg/dL 0.60-1.30 Serum or plasma urea nitrogen/creatinine mass ratio 10 NRG Serum or plasma creatinine measurement with calculation of estimated glomerular filtration rate > NRG Serum or plasma glucose measurement (mass/volume) 114 mg/dL 70-105 Serum or plasma calcium measurement (mass/volume) 10.1 mg/dL 8.5-10.1 Serum or plasma total bilirubin measurement (mass/volume) 0.6 mg/dL 0.1-1.0 Serum or plasma alkaline phosphatase measurement (enzymatic activity/volume) 75 U/L 40-136 Serum or plasma aspartate aminotransferase measurement (enzymatic activity/ volume) 26 U/L 5-34 Serum or plasma alanine aminotransferase measurement (enzymatic activity/volume ) 27 U/L 0-55 Serum or plasma protein measurement (mass/volume) 7.7 g/dL 6.4-8.2 Serum or plasma albumin measurement (mass/volume) 4.5 g/dL 3.2-4.5 Lipase - 02/07/18 11:45 Lipase 22 U/L 8-78 Urine drug screening test - 02/07/18 11:45 Urine phencyclidine detection by screening method NEGATIVE NEGATIVE Urine benzodiazepines detection by screening method NEGATIVE NEGATIVE Urine cocaine detection NEGATIVE NEGATIVE Urine amphetamines detection by screening method NEGATIVE NEGATIVE Urine methamphetamine detection by screening method NEGATIVE NEGATIVE Urine cannabinoids detection by screening method POSITIVE NEGATIVE Urine opiates detection by screening method NEGATIVE NEGATIVE Urine barbiturates detection NEGATIVE NEGATIVE Screening urine tricyclic antidepressants detection NEGATIVE NEGATIVE Urine methadone detection by screening method NEGATIVE NEGATIVE Urine oxycodone detection NEGATIVE NEGATIVE Urine propoxyphene detection NEGATIVE NEGATIVE Encounters ACCT No. Visit Date/Time Discharge Status Pt. Type Provider Facility Loc./Unit Complaint [id number] 01/11/2015 13:13:00 01/11/2015 23:59:59 CLS Outpatient DANIELLE MARGARET ROGRES [place]na [id number] 09/09/2017 17:00:00 09/09/2017 23:59:59 [facility] [id number] 02/07/2018 11:21:00 02/07/2018 14:08:00 DIS Emergency BRITTANY ROMERO Via [facility] ER VOMITING,LIGHT-HEADED [id number] 02/05/2018 20:56:00 02/05/2018 21:27:00 DIS Emergency MARIANNE CARDONA MD Via [facility] ER VOMITING,SOB [id number] 08/28/2017 21:49:00 08/28/2017 22:36:00 DIS Emergency LAURA ROBERT ROGERS Via [facility] ER TOOTH PAIN [id number] 09/02/2015 20:44:00 09/02/2015 22:37:00 DIS Emergency ABDIRIZAK BALLESTEROS APRN Via [facility] ER R ARM NUMBNESS,DIZZINESS [id number] 03/11/2013 23:59:00 03/12/2013 04:03:00 DIS Emergency RENETTA GOODWIN MD Via [facility] ER VOMITING [id number] 07/09/2018 12:07:00 ACT Emergency RENETTA GOODWIN MD Via [facility] ER SUTURED FINGER IS SWOLLEN [id number] 08/26/2012 21:23:00 Document Registration [id number] 08/21/2012 00:58:00 Document Registration
[2018-07-09] MEDS ORDERED: CLINDAMYCIN 300 MG/2ML (CLEOCIN) VIAL ONE (12:26)
--- NOTE | 2018-07-09 12:28 | ED Integumentary General ---
General Chief Complaint: Skin/Wound Problems Stated Complaint: SUTURED FINGER IS SWOLLEN Nursing Triage Note: PT STATES THRUSDAY HAD CUT HIS THIRD FINGER ON CEILING FAN. PT STATES [place] TO GET SUTURES, SWELLING INCREASED/PAIN/REDNESS. Source: patient Exam Limitations: no limitations History of Present Illness Date Seen by Provider: Jul 09, 2018 Time Seen by Provider: 12:24 Initial Comments To ER per private vehicle with reports of swelling and pain to the middle finger where he cut his finger and had it stitched. 3 days ago she lacerated the dorsal aspect middle phalanx middle finger left hand on the ceiling fan at home. He was seen at [facility] and this was sutured with 4 simple a ruptured sutures. He now has swelling over the dorsal aspect of the finger and the dorsal aspect of the hand. He is not on antibiotics. Timing/Duration: constant Severity: moderate Allergies and Home Medications Allergies Coded Allergies: Penicillins (Unverified Allergy, Mild, 02/25/09) Home Medications Benzonatate 100 Mg Capsule, 100 MG PO Q6H PRN for COUGH Prescribed by: MARIANNE CARDONA on 02/05/182122 Benzonatate 200 Mg Capsule, 200 MG PO Q8H PRN for COUGH Prescribed by: BRITTANY JOHNSON on 02/07/18 131 Clindamycin HCl 300 Mg Capsule, 300 MG PO QID Prescribed by: ROBERT SANCHEZ on 08/28/172228 Hydrocodone/Acetaminophen 1 Each Tablet, 1 EACH PO Q6H PRN for PAIN-MODERATE Do not fill unless clindamycin is also filled Prescribed by: ABDIRIZAK BALLESTEROS on 07/09/18 1248 Lidocaine HCl 15 Ml Solution, 1-2 ML MM Q 1-2 HOURS Prescribed by: ROBERT SANCHEZ on 08/28/172228 Naproxen 500 Mg Tablet, 500 MG PO BID Prescribed by: ROBERT SANCHEZ on 08/28/172228 Ondansetron 4 Mg Tab.rapdis, 4 MG SL Q4H PRN for NAUSEA/VOMITING-1ST LINE Prescribed by: MARIANNE CARDONA on 02/05/182122 Ondansetron 8 Mg Tab.rapdis, 8 MG PO Q6H PRN for NAUSEA/VOMITING-1ST LINE Prescribed by: BRITTANY JOHNSON on 02/07/18 131 Prednisone 20 Mg Tab, 40 MG PO DAILY Prescribed by: BRITTANY JOHNSON on 02/07/18 1311 Patient Home Medication List Home Medication List Reviewed: Yes Review of Systems Review of Systems Constitutional: see HPI; No chills EENTM: see HPI Respiratory: no symptoms reported Cardiovascular: no symptoms reported Genitourinary: no symptoms reported Musculoskeletal: see HPI Skin: no symptoms reported Psychiatric/Neurological: No Symptoms Reported Endocrine: No Symptoms Reported Past Jbegcij-Romurx-Biygec Hx Patient Social History Type Used: Cigarettes 2nd Hand Smoke Exposure: Yes Recent Foreign Travel: No Contact w/Someone Who Travel: No Recent Infectious Disease Expo: No Recent Hopitalizations: No Immunizations Up To Date Tetanus Booster (TDap): Unknown PED Vaccines UTD: Yes Date of Influenza Vaccine: Aug 12, 2012 Seasonal Allergies Seasonal Allergies: No Past Medical History Surgeries: Yes (BMT'S) Ear Surgery Respiratory: Yes Asthma Currently Using CPAP: No Currently Using BIPAP: No Cardiac: No Neurological: No Reproductive Disorders: No Sexually Transmitted Disease: No HIV/AIDS: No Genitourinary: No Gastrointestinal: Yes Chronic Constipation Musculoskeletal: No Endocrine: No HEENT: Yes (CHRONIC DENTAL ISSUES--"METH MOUTH" ) Cancer: No Psychosocial: Yes (DRUG AND ALCOHOL ABUSE) Anxiety, Bipolar, Depression Integumentary: No Blood Disorders: No Adverse Reaction/Blood Tranf: No Family Medical History No Pertinent Family Hx Physical Exam Vital Signs Vital Signs - First Documented 07/09/18 12:16 Temp 97.0 Pulse 88 Resp 20 B/P (MAP) 147/64 (91) Pulse Ox 96 O2 Delivery Room Air Capillary Refill : Less Than 3 Seconds General Appearance: WD/WN, no apparent distress HEENT: PERRL/EOMI, normal ENT inspection Neck: non-tender, full range of motion Respiratory: no respiratory distress, no accessory muscle use Gastrointestinal: normal bowel sounds, non tender Extremities: non-tender, swelling, other (limited flexion and extension of the left middle finger due to swelling. There is about a 1-1.5 semi-laceration overlying the dorsal aspect middle phalanx middle finger left hand. There are 4 simple interrupted sutures in place with no drainage around them. I did remove 3 of these sutures and had immediate return of a small to moderate amount of purulent material. There is swelling over the dorsal aspect of the finger up the dorsal aspect of the hand terminating at the wrist. Culture of this material was collected and sent to lab.) Neurologic/Psychiatric: alert, normal mood/affect Skin: normal color, warm/dry Skin Problem Location: upper extremities Skin Problem Character: erythema, swelling Progress/Results/Core Measures Results/Orders My Orders Orders - ABDIRIZAK BALLESTEROS APRN Wound Culture (07/09/18 12:21) Hand, Left, 3 Views (07/09/18 12:21) Clindamycin Injection (Cleocin Injection (07/09/18 12:30) Hydrocodone/Apap 5/325 Tablet (Lortab 5 (07/09/18 12:30) Clindamycin Injection (Cleocin Injection (07/09/18 12:26) Medications Given in ED Current Medications Medications Dose Ordered Sig/Sarah Route Start Time Stop Time Status Last Admin Dose Admin Acetaminophen/ Hydrocodone Bitart 1 tab ONCE ONCE PO 07/09/18 12:30 07/09/18 12:31 DC 07/09/18 12:45 1 TAB Clindamycin Phosphate 600 mg ONCE ONCE IM 07/09/18 12:30 07/09/18 12:31 DC 07/09/18 12:45 600 MG Vital Signs/I&O 07/09/18 12:16 Temp 97.0 Pulse 88 Resp 20 B/P (MAP) 147/64 (91) Pulse Ox 96 O2 Delivery Room Air Blood Pressure Mean: 91 Diagnostic Imaging Diagonstic Imaging: Xray Comments NAME: EMERITA IBRAHIM [facility] REC#: [id number] PT STATUS: REG ER : 1995 PHYSICIAN: ABDIRIZAK BALLESTEROS APRN ADMIT DATE: 07/09/18/ER Draft Date of Exam:07/09/18 HAND, LEFT, 3 VIEWS INDICATION: Left hand pain. COMPARISON: None available. TECHNIQUE: 3 views of left hand. FINDINGS AND IMPRESSION: 1. No acute or healing fracture. 2. No radiographic features of osteomyelitis. 3. No traumatic subluxation. Dictated on workstation # [id number] Dict: 07/09/18 1234 Trans: 07/09/18 1239 [id number] Interpreted by: RAYSHAWN NAVAS MD Electronically signed by: Departure Communication (Admissions) He states that he cannot afford any antibiotics. I did remove 3 of the stitches leaving one in place. I did contact the nursing water control supervisor and we will get him a voucher for prescription antibiotics, I'll use clindamycin 300 mg by mouth 3 times a day #21 and prescribed pain medication and we'll have him follow-up with orthopedics. Impression Primary Impression: Infected laceration of skin Disposition: HOME, SELF-CARE Condition: Stable Departure-Patient Inst. Decision time for Depature: 12:45 Referrals: NEREIDA NORMAN MD, MARK E DO NO,LOCAL PHYSICIAN (PCP) Primary Care Physician MARIA TERESA BECK MD, ROBERT F DO ZAFUTA, MICHAEL P MD Patient Instructions: Laceration Infection Add. Discharge Instructions: Clean this gently with soap and water once or twice daily. Keep this covered with gauze to collect the drainage. It is very important that she take the antibiotics. These have been called in to [facility] pharmacy and a voucher has been faxed to pay for them. I cannot stress to you enough the importance of taking these antibiotics. Call orthopedic surgeon of your choosing on Wednesday to make an appointment to be seen for further evaluation. Return to ER for any worsening. All discharge instructions reviewed with patient and/or family. Voiced understanding. Scripts Hydrocodone/Acetaminophen (Milmay 5-325 Tablet) 1 Each Tablet 1 EACH PO Q6H PRN for PAIN-MODERATE MDD 10, #14 TAB Do not fill unless clindamycin is also filled Prov: ABDIRIZAK BALLESTEROS APRN 07/09/18 ABDIRIZAK BALLESTEROS APRN Jul 09, 2018 12:28
[2018-07-09] MEDS ORDERED: HYDROcodone/APAP 5 MG/325 MG (LORTAB) TAB PO ONE (12:30)
[2018-07-09] MEDS ORDERED: CLINDAMYCIN 600 MG/4ML (CLEOCIN) VIAL IM ONE (12:30)
--- NOTE | 2018-07-09 12:39 | Diagnostic Imaging Report ---
INDICATION: Left hand pain. COMPARISON: None available. TECHNIQUE: 3 views of left hand. FINDINGS AND IMPRESSION: 1. No acute or healing fracture. 2. No radiographic features of osteomyelitis. 3. No traumatic subluxation. Dictated by: Dictated on workstation # [id number]
[2018-07-09] MEDS ORDERED: HYDR-4226 PO (12:48)
[2018-07-09 14:09] VITALS: BP 147/64
== END 2018-07-09 14:10 | disposition home or self-care (01) ==
LOC: EDUNIT# 12:05 → ER 12:07
DX: T81.4XXA Infection following a procedure, initial encounter (principal); S61.213A Laceration without foreign body of left middle finger without damage to nail, initial encounter; J45.909 Unspecified asthma, uncomplicated; F41.9 Anxiety disorder, unspecified; F31.9 Bipolar disorder, unspecified; Z87.19 Personal history of other diseases of the digestive system; Z88.0 Allergy status to penicillin; Z79.52 Long term (current) use of systemic steroids; Z77.22 Contact with and (suspected) exposure to environmental tobacco smoke (acute) (chronic); W26.8XXA Contact with other sharp object(s), not elsewhere classified, initial encounter
CPT/HCPCS: 73130; 87070; 87205; 96372

== ENCOUNTER 2018-07-22 18:08 | Emergency (ER) | payer SELFPAY ==
[~2018-07-22] VITALS: Ht 180.3 cm; Wt 80.7 kg
[~2018-07-22 18:08] MED LIST changes: +HYDR-4226 PO
[2018-07-22] MEDS ORDERED: KETOROLAC 60 MG/2 ML VIAL IM ONE (18:15)
[2018-07-22] MEDS ORDERED: ORPHENADRINE 60 MG/2 ML (NORFLEX) AMP IM ONE (18:15)
--- OUTSIDE RECORDS SUMMARY | 2018-07-22 18:15 | XMS REPORT | Continuity of Care Document ---
Author Author [facility] Ctr of [facility] Ctr of [facility] Address Unknown Phone Unavailable Allergies Active Description Code Type Severity Reaction Onset Reported/Identified Relationship to Patient Clinical Status Yes Penicillins [id number] Drug Allergy Mild N/A 02/25/2009 Yes Penicillins [...] Ot F17.210 NICOTINE DEPENDENCE, CIGARETTES, UNCOMPL 02/07/2018 NILS ROMEROEN L Ot F31.9 BIPOLAR DISORDER, UNSPECIFIED 02/07/2018 BRITTANY ROMERO Ot F41.9 ANXIETY DISORDER, UNSPECIFIED 02/07/2018 BRITTANY ROMERO L Ot J11.1 FLU DUE TO UNIDENTIFIED INFLUENZA VIRUS 02/07/2018 NILS ROMEROEN L Ot J45.909 UNSPECIFIED ASTHMA, UNCOMPLICATED 02/07/2018 BRITTANY ROMERO L Ot K59.09 OTHER CONSTIPATION 02/07/2018 NILS ROMEROEN L Ot R11.2 NAUSEA WITH VOMITING, UNSPECIFIED 02/07/2018 BRITTANY ROMERO L Ot R19.7 DIARRHEA, UNSPECIFIED 02/07/2018 BRITTANY ROMERO L Ot R50.9 FEVER, UNSPECIFIED 02/07/2018 BRITTANY ROMERO L Ot Z88.0 ALLERGY STATUS TO PENICILLIN 02/07/2018 NILS ROMEROEN L Ot Z98.890 OTHER SPECIFIED POSTPROCEDURAL STATES 02/09/2018 BRITTANY ROMERO Ot F12.90 CANNABIS USE, UNSPECIFIED, UNCOMPLICATED 02/09/2018 BRITTANY ROMERO L Ot F17.210 NICOTINE DEPENDENCE, CIGARETTES, UNCOMPL 02/09/2018 BRITTANY ROMERO Ot F31.9 BIPOLAR DISORDER, UNSPECIFIED 02/09/2018 BRITTANY ROMERO L Ot F41.9 ANXIETY DISORDER, UNSPECIFIED 02/09/2018 BRITTANY ROMERO L Ot J11.1 FLU DUE TO UNIDENTIFIED INFLUENZA VIRUS 02/09/2018 BRITTANY ROMERO L Ot J45.909 UNSPECIFIED ASTHMA, UNCOMPLICATED 02/09/2018 BRITTANY ROMERO L Ot K59.09 OTHER CONSTIPATION 02/09/2018 BRITTANY ROMERO L Ot R11.2 NAUSEA WITH VOMITING, UNSPECIFIED 02/09/2018 BRITTANY ROMERO L Ot R19.7 DIARRHEA, UNSPECIFIED 02/09/2018 BRITTANY ROMERO L Ot R50.9 FEVER, UNSPECIFIED 02/09/2018 BRITTANY ROMERO L Ot Z88.0 ALLERGY STATUS TO PENICILLIN 02/09/2018 NILS ROMEROEN L Ot Z98.890 OTHER SPECIFIED POSTPROCEDURAL STATES 07/12/2018 ABDIRIZAK BALLESTEROS APRN Ot F31.9 BIPOLAR DISORDER, UNSPECIFIED 07/12/2018 ABDIRIZAK BALLESTEROS APRN Ot F41.9 ANXIETY DISORDER, UNSPECIFIED 07/12/2018 ABDIRIZAK BALLESTEROS APRN Ot J45.909 UNSPECIFIED ASTHMA, UNCOMPLICATED 07/12/2018 ABDIRIZAK BALLESTEROS APRN Ot S61.213A LACERATION W/O FB OF L MID FINGER W/O DA 07/12/2018 ABDIRIZAK BALLESTEROS APRN Ot T81.4XXA INFECTION FOLLOWING A PROCEDURE, INITIAL 07/12/2018 ABDIRIZAK BALLESTEROS APRN Ot W26.8XXA CONTACT WITH OTHER SHARP OBJECT(S), NEC, 07/12/2018 ABDIRIZAK BALLESTEROS APRN Ot Z77.22 CNTCT W AND EXPSR TO ENVIRON TOBACCO SMO 07/12/2018 ABDIRIZAK BALLESTEROS APRN Ot Z79.52 PART TIME (CURRENT) USE OF SYSTEMIC STER 07/12/2018 ABDIRIZAK BALLESTEROS APRN Ot Z87.19 PERSONAL HISTORY OF OTHER DISEASES OF TH 07/12/2018 ABDIRIZAK BALLESTEROS APRN Ot Z88.0 ALLERGY STATUS TO PENICILLIN Procedures Code Description [place] [address] GC/CHLAM URINE (STATE) 01/11/2015 Results Test Result Range [...] NEGATIVE NEGATIVE Urine propoxyphene detection NEGATIVE NEGATIVE Gram stain microscopy - 07/09/18 12:20 Gram stain microscopy No bacteria seen NRG Bacteria identification in wound by culture - 07/09/18 12:20 Bacteria identification in wound by culture NG NRG Encounters ACCT No. Visit Date/Time Discharge Status Pt. Type Provider Facility Loc./Unit Complaint [id number] 01/11/2015 13:13:00 01/11/2015 23:59:59 [place] [id number] 09/09/2017 17:00:00 09/09/2017 23:59:59 CLS Outpatient KRYSTLE JIN APRN [facility] [id number] 07/09/2018 12:07:00 07/09/2018 14:10:00 DIS Outpatient ABDIRIZAK BALLESTEROS APRN Via [facility] ER SUTURED FINGER IS SWOLLEN [id number] 02/07/2018 11:21:00 02/07/2018 14:08:00 DIS Emergency BRITTANY ROMERO Via [facility] ER VOMITING,LIGHT-HEADED [id number] 02/05/2018 20:56:00 02/05/2018 21:27:00 DIS Emergency MARIANNE CARDONA MD Via [facility] ER VOMITING,SOB [id number] 08/28/2017 21:49:00 08/28/2017 22:36:00 DIS Emergency LAURA DOROBERT Via [facility] ER TOOTH PAIN [id number] 09/02/2015 20:44:00 09/02/2015 22:37:00 DIS Emergency ABDIRIZAK BALLESTEROS APRN Via [facility] ER R ARM NUMBNESS,DIZZINESS [id number] 03/11/2013 23:59:00 03/12/2013 04:03:00 DIS Emergency RENETTA GOODWIN MD Via [facility] ER VOMITING [id number] 08/26/2012 21:23:00 Document Registration [id number] 08/21/2012 00:58:00 Document Registration
[2018-07-22] MEDS ORDERED: METH-313 PO (18:18)
--- NOTE | 2018-07-22 18:18 | ED Neck-Back Pain/Injury ---
General Stated Complaint: NECK PAIN Source of Information: Patient Exam Limitations: No Limitations History of Present Illness Date Seen by Provider: Jul 22, 2018 Time Seen by Provider: 18:15 Initial Comments To ER per private vehicle with reports of left lateral neck pain worsened by turning his head to the left. The pain is to the left side of the neck left shoulder and left cheek. No known injury. He awakened with this pain yesterday morning. No fevers or chills. Location: C-Spine Timing/Duration: 4-6 Hours Severity: Mild Pain/Injury Location: Neck Allergies and Home Medications Allergies Coded Allergies: Penicillins (Unverified Allergy, Mild, 02/25/09) Home Medications Benzonatate 100 Mg Capsule, 100 MG PO Q6H PRN for COUGH Prescribed by: MARIANNE CARDONA on 02/05/182122 Benzonatate 200 Mg Capsule, 200 MG PO Q8H PRN for COUGH Prescribed by: BRITTANY JOHNSON on 02/07/18 131 Clindamycin HCl 300 Mg Capsule, 300 MG PO QID Prescribed by: ROBERT SANCHEZ on 08/28/172228 Hydrocodone/Acetaminophen 1 Each Tablet, 1 EACH PO Q6H PRN for PAIN-MODERATE Do not fill unless clindamycin is also filled Prescribed by: ABDIRIZAK BALLESTEROS on 07/09/18 1248 Lidocaine HCl 15 Ml Solution, 1-2 ML MM Q 1-2 HOURS Prescribed by: ROBERT SANCHEZ on 08/28/172228 Naproxen 500 Mg Tablet, 500 MG PO BID Prescribed by: ROBERT SANCHEZ on 08/28/172228 Ondansetron 4 Mg Tab.rapdis, 4 MG SL Q4H PRN for NAUSEA/VOMITING-1ST LINE Prescribed by: MARIANNE CARDONA on 02/05/182122 Ondansetron 8 Mg Tab.rapdis, 8 MG PO Q6H PRN for NAUSEA/VOMITING-1ST LINE Prescribed by: BRITTANY JOHNSON on 02/07/18 131 Prednisone 20 Mg Tab, 40 MG PO DAILY Prescribed by: BRITTANY JOHNSON on 02/07/18 131 Patient Home Medication List Home Medication List Reviewed: Yes Review of Systems Constitutional: see HPI; No chills, No fever EENTM: see HPI Respiratory: no symptoms reported Cardiovascular: no symptoms reported Genitourinary: no symptoms reported Musculoskeletal: see HPI, neck pain Skin: no symptoms reported Psychiatric/Neurological: No Symptoms Reported Past Lmvgxka-Iimtmp-Yslvoi Hx Patient Social History Type Used: Cigarettes 2nd Hand Smoke Exposure: Yes Recent Foreign Travel: No Contact w/Someone Who Travel: No Recent Hopitalizations: No Immunizations Up To Date Tetanus Booster (TDap): Unknown PED Vaccines UTD: Yes Date of Influenza Vaccine: Aug 12, 2012 Seasonal Allergies Seasonal Allergies: No Past Medical History Surgeries: Yes (BMT'S) Ear Surgery Respiratory: Yes Asthma Currently Using CPAP: No Currently Using BIPAP: No Cardiac: No Neurological: No Reproductive Disorders: No Sexually Transmitted Disease: No HIV/AIDS: No Genitourinary: No Gastrointestinal: Yes Chronic Constipation Musculoskeletal: No Endocrine: No HEENT: Yes (CHRONIC DENTAL ISSUES--"METH MOUTH" ) Cancer: No Psychosocial: Yes (DRUG AND ALCOHOL ABUSE) Anxiety, Bipolar, Depression Integumentary: No Blood Disorders: No Adverse Reaction/Blood Tranf: No Family Medical History No Pertinent Family Hx Physical Exam Vital Signs Capillary Refill : Height, Weight, BMI Height: 5'11.00" Weight: 178lbs. oz. [id number]; 24.82 BMI Method:Stated General Appearance: No Apparent Distress, WD/WN HEENT: PERRL/EOMI, TMs Normal Neck: Full Range of Motion, Normal Inspection Respiratory: No Accessory Muscle Use, No Respiratory Distress Gastrointestinal: Non Tender, Soft Neurologic/Psychiatric: Alert, Oriented x3 Skin: Normal Color, Warm/Dry Progress/Results/Core Measures Results/Orders My Orders Orders - ABDIRIZAK BALLESTEROS APRN Ketorolac Injection (Toradol Injection) (07/22/18 18:15) Orphenadrine Injection (Norflex Injectio (07/22/18 18:15) Departure Impression Primary Impression: Cervical spine pain Disposition: HOME, SELF-CARE Condition: Stable Departure-Patient Inst. Decision time for Depature: 18:17 Referrals: [facility] (PCP/Family) Primary Care Physician Patient Instructions: Neck Pain Add. Discharge Instructions: 1. Warm compresses to her neck 2. Anti-inflammatories like ibuprofen or naproxen for pain control. Take muscle relaxers as directed. Scripts Methocarbamol (Robaxin-750) 750 Mg Tablet 750 MG PO Q6H PRN for PAIN-MODERATE, #10 TAB Prov: ABDIRIZAK BALLESTEROS APRN 07/22/18 ABDIRIZAK BALLESTEROS APRN Jul 22, 2018 18:18
[2018-07-22 18:38] VITALS: BP 125/78
== END 2018-07-22 18:38 | disposition home or self-care (01) ==
LOC: EDUNIT# 18:08 → ER 18:09
DX: M54.2 Cervicalgia (principal); J45.909 Unspecified asthma, uncomplicated; F41.9 Anxiety disorder, unspecified; F31.9 Bipolar disorder, unspecified; Z87.19 Personal history of other diseases of the digestive system; Z88.0 Allergy status to penicillin; Z79.52 Long term (current) use of systemic steroids; Z77.22 Contact with and (suspected) exposure to environmental tobacco smoke (acute) (chronic)
CPT/HCPCS: 99282

== ENCOUNTER 2019-04-24 20:34 | Emergency (ER) | payer SELFPAY ==
[~2019-04-24] VITALS: Ht 180.3 cm; Wt 80.7 kg
[~2019-04-24 20:34] MED LIST changes: +METH-313 PO
[2019-04-24] MEDS ORDERED: CEPHALEXIN 250 MG (KEFLEX) CAP PO ONE (21:00)
[2019-04-24] MEDS ORDERED: IBUPROFEN 600 MG (MOTRIN) TAB PO ONE (21:00)
[2019-04-24] MEDS ORDERED: CEPH500T PO (21:05)
--- NOTE | 2019-04-24 21:05 | ED EENT ---
History of Present Illness General Chief Complaint: Dental Problems/Pain Stated Complaint: DENTAL PAIN,FACIAL SWELLING Nursing Triage Note: pt states he has had ongoing dental issues for the last 30 days, states two days ago his left bicuspid began to develope swelling and increased pain. pt states he tried to get into [facility] but was told it would be 4 weeks before he could be seen. pt denies chills, nvd, or purulent drainage. enitre upper lip noted to have swelling present, pt denies airway involvement. History of Present Illness Date Seen by Provider: Apr 24, 2019 Time Seen by Provider: 20:40 Initial Comments 23-year-old female presents for dental pain. He states the teeth in his upper and lower jaw have been causing him pain. He was evaluated at [facility] but told it would be several weeks he dental services. He took one Tylenol 1 ibuprofen prior to arrival. He was treated at [facility] in February with some dental extractions but understands he needs more. Timing/Duration: gradual Severity: moderate Location: mouth Prearrival Treatment: over the counter meds Allergies and Home Medications Allergies Coded Allergies: Penicillins (Unverified Allergy, Mild, 04/24/19) Home Medications Benzonatate 100 Mg Capsule, 100 MG PO Q6H PRN for COUGH Prescribed by: MARIANNE CARDONA on 02/05/182122 Benzonatate 200 Mg Capsule, 200 MG PO Q8H PRN for COUGH Prescribed by: BRITTANY JOHNSON on 02/07/18 1312 Cephalexin 500 Mg Tablet, 500 MG PO QID Prescribed by: FLORENTINO ZURITA on 04/24/19 210 Clindamycin HCl 300 Mg Capsule, 300 MG PO QID Prescribed by: ROBERT SANCHEZ on 08/28/172228 Hydrocodone/Acetaminophen 1 Each Tablet, 1 EACH PO Q6H PRN for PAIN-MODERATE Do not fill unless clindamycin is also filled Prescribed by: ABDIRIZAK BALLESTEROS on 07/09/18 1248 Lidocaine HCl 15 Ml Solution, 1-2 ML MM Q 1-2 HOURS Prescribed by: ROBERT SANCHEZ on 08/28/172228 Methocarbamol 750 Mg Tablet, 750 MG PO Q6H PRN for PAIN-MODERATE Prescribed by: ABDIRIZAK BALLESTEROS on 07/22/18 1818 Naproxen 500 Mg Tablet, 500 MG PO BID Prescribed by: ROBERT SANCHEZ on 08/28/172228 Ondansetron 4 Mg Tab.rapdis, 4 MG SL Q4H PRN for NAUSEA/VOMITING-1ST LINE Prescribed by: MARIANNE CARDONA on 02/05/182122 Ondansetron 8 Mg Tab.rapdis, 8 MG PO Q6H PRN for NAUSEA/VOMITING-1ST LINE Prescribed by: BRITTANY JOHNSON on 02/07/18 1311 Prednisone 20 Mg Tab, 40 MG PO DAILY Prescribed by: BRITTANY JOHNSON on 02/07/18 1311 Patient Home Medication List Home Medication List Reviewed: Yes Review of Systems Review of Systems Constitutional: no symptoms reported, see HPI Mouth: see HPI, pain All Other Systems Reviewed Negative Unless Noted: Yes Past Jaizobj-Fixzxn-Nculfp Hx Past Med/Social Hx: Reviewed Nursing Past Med/Soc Hx Patient Social History Alcohol Use: Occasionally Uses Recreational Drug Use: Yes Drug of Choice: marijuana Smoking Status: Current Someday Smoker Type Used: Cigarettes 2nd Hand Smoke Exposure: Yes Recent Foreign Travel: No Contact w/Someone Who Travel: No Recent Infectious Disease Expo: No Recent Hopitalizations: No Immunizations Up To Date Tetanus Booster (TDap): Unknown PED Vaccines UTD: Yes Date of Influenza Vaccine: Aug 12, 2012 Seasonal Allergies Seasonal Allergies: No Past Medical History Surgeries: Yes (BMT'S) Ear Surgery Respiratory: Yes Asthma Currently Using CPAP: No Currently Using BIPAP: No Cardiac: No Neurological: No Reproductive Disorders: No Sexually Transmitted Disease: No HIV/AIDS: No Genitourinary: No Gastrointestinal: Yes Chronic Constipation Musculoskeletal: No Endocrine: No HEENT: Yes (CHRONIC DENTAL ISSUES--"METH MOUTH" ) Cancer: No Psychosocial: Yes (DRUG AND ALCOHOL ABUSE) Anxiety, Bipolar, Depression Integumentary: No Blood Disorders: No Adverse Reaction/Blood Tranf: No Family Medical History No Pertinent Family Hx Physical Exam Vital Signs Vital Signs - First Documented 04/24/19 20:38 Temp 97.5 Pulse 75 Resp 18 B/P (MAP) 130/78 (95) Pulse Ox 95 O2 Delivery Room Air Height, Weight, BMI Height: 5'11.00" Weight: 178lbs. oz. 80.579676yr; 24.82 BMI Method:Stated General Appearance: WD/WN, no apparent distress Ears: bilateral ear auricle normal, bilateral ear canal normal, bilateral ear TM normal Mouth/Throat: pharynx normal, dental tenderness; No excessive drooling, No foreign body, No mandibular swelling, No maxillary swelling, No pharynx swelling, No tonsillar exudate; other (dental caries with multiple degrees of decay. Chronic gingivitis) Neck: non-tender, full range of motion, supple, normal inspection; No lymphadenopathy (R), No lymphadenopathy (L) Cardiovascular: normal peripheral pulses, regular rate, rhythm Respiratory: chest non-tender, lungs clear, normal breath sounds Neurologic/Psychiatric: no motor/sensory deficits, alert, normal mood/affect, oriented x 3 Progress/Results/Core Measures Results/Orders My Orders Orders - FLORENTINO ZURITA Cephalexin Capsule (Keflex Capsule) (04/24/19 21:00) Ibuprofen Tablet (Motrin Tablet) (04/24/19 21:00) Medications Given in ED Current Medications Medications Dose Ordered Sig/Sarah Route Start Time Stop Time Status Last Admin Dose Admin Cephalexin HCl 500 mg ONCE ONCE PO 04/24/19 21:00 04/24/19 21:01 DC 04/24/19 21:08 500 MG Ibuprofen 600 mg ONCE ONCE PO 04/24/19 21:00 04/24/19 21:01 DC 04/24/19 21:08 600 MG Vital Signs/I&O 04/24/19 20:38 Temp 97.5 Pulse 75 Resp 18 B/P (MAP) 130/78 (95) Pulse Ox 95 O2 Delivery Room Air Blood Pressure Mean: 95 Departure Impression Primary Impression: Pain, dental Additional Impression: Dental caries Disposition: HOME, SELF-CARE Condition: Improved Departure-Patient Inst. Decision time for Depature: 21:00 Referrals: [facility] (PCP/Family) Primary Care Physician Patient Instructions: Dental Pain (DC), Tooth Decay, Adult (DC) Add. Discharge Instructions: Follow-up at [facility]. Take antibiotics as prescribed. [id number] dental pain products, as directed (Oragel or similar product). Alternate between ibuprofen 600 mg and acetaminophen 650 mg every 4 hours for pain. Warm salt water gargles. Return to emergency department for fever greater than 101 not relieved by Tylenol or ibuprofen, new problems or urgent concerns. All discharge instructions reviewed with patient and/or family. Voiced understanding. Scripts Cephalexin (Cephalexin) 500 Mg Tablet 500 MG PO QID, #20 TAB 0 Refills Prov: FLORENTINO ZURITA 04/24/19 FLORENTNIO ZURITA Apr 24, 2019 21:05
[2019-04-24 21:38] VITALS: BP 128/74
== END 2019-04-24 21:39 | disposition home or self-care (01) ==
LOC: EDUNIT# 20:34 → ER 20:35
DX: K02.9 Dental caries, unspecified (principal); J45.909 Unspecified asthma, uncomplicated; F31.9 Bipolar disorder, unspecified; F41.9 Anxiety disorder, unspecified; F12.10 Cannabis abuse, uncomplicated; F17.210 Nicotine dependence, cigarettes, uncomplicated; Z88.0 Allergy status to penicillin
CPT/HCPCS: 99283

== ENCOUNTER 2019-11-24 11:33 | Emergency (ER) | payer SELFPAY ==
[~2019-11-24 11:33] MED LIST changes: +CEPH500T PO; +OMEP-280 PO; -OMEP20CA12 PO
== END 2019-11-24 12:17 | disposition left against medical advice (07) ==
LOC: EDUNIT# 11:33 → ER 11:35
DX: M79.672 Pain in left foot (principal)